=== PATIENT | male | born 1950 | race Hispanic/Latino ===

== ENCOUNTER 2017-09-06 17:22 | Inpatient (IN) | payer MEDICARE, OTHER ==
[~2017-09-06] VITALS: Ht 180.3 cm; Wt 85.3 kg
[2017-09-06] MEDS ORDERED: ACETAMINOPHEN 325 MG TAB PO STA (17:56)
[2017-09-06] MEDS ORDERED: ACETAMINOPHEN 325 MG TAB ONE (17:56)
[2017-09-06 18:27] LABS: BASOPHILS # (AUTO) 0.1 (0.0-0.1); BASOPHILS % 0.5 % (0.0-1.0); EOSINOPHILS # (AUTO) 0.1 (0.0-0.4); EOSINOPHILS % 0.4 % (0.0-6.0); HEMATOCRIT 39.7 % (38.2-49.6); HEMOGLOBIN 13.3 g/dL (14.0-18.0); LYMPHOCYTES # (AUTO) 2.7 (1.0-3.2); LYMPHOCYTES % 10.8 % (18.0-39.1); MEAN CORPUSCULAR HEMOGLOBIN 29.1 pg (28-32); MEAN CORPUSCULAR HGB CONC 33.5 g/dL (31-35); MEAN CORPUSCULAR VOLUME 86.9 fL (81-99); MONOCYTES # (AUTO) 2.3 (0.2-0.8); MONOCYTES % 9.3 % (4.4-11.3); NEUTROPHILS # (AUTO) 19.6 (2.1-6.9); NEUTROPHILS % 78.3 % (38.7-80.0); PLATELET COUNT 348 x10e3/uL (140-360); RED BLOOD COUNT 4.57 x10e6/uL (4.3-5.7); RED CELL DISTRIBUTION WIDTH 14.8 % (11.7-14.4)
[2017-09-06 18:49] LABS: ALANINE AMINOTRANSFERASE 29 IU/L (0-55); ALBUMIN 3.7 g/dL (3.5-5.0); ALKALINE PHOSPHATASE 73 IU/L (40-150); ANION GAP 12.7 mmol/L (8-16); BLOOD UREA NITROGEN 11 mg/dL (7-26); BUN/CREATININE RATIO 14 (6-25); CALCIUM 9.5 mg/dL (8.4-10.2); CARBON DIOXIDE 24 mmol/L (22-29); CHLORIDE 101 mmol/L (98-107); CREATININE, SERUM 0.76 mg/dL (0.72-1.25); EST GLOMERULAR FILTRATION RATE > 60 ML/MIN (60-); GLUCOSE 105 mg/dL (74-118); POTASSIUM 3.7 mmol/L (3.5-5.1); SODIUM 134 mmol/L (136-145)
[2017-09-06 19:09] LABS: LYMPHOCYTES % (MANUAL) 10 % (19-48); MONOCYTES % (MANUAL) 10 % (3.4-9.0); NEUTROPHILS % (MANUAL) 79 % (40-74)
[2017-09-06 19:10] LABS: PLATELET MORPHOLOGY COMMENT FEW LARGE
[2017-09-06 19:11] LABS: ANISOCYTOSIS SLIGHT; PLATELET ESTIMATE ADEQUATE; RBC MORPHOLOGY COMMENT NORMAL
[2017-09-06 19:14] LABS: CLARITY,URINE HAZY (CLEAR); COLOR,URINE YELLOW (YELLOW); LEUKOCYTE ESTERASE ,URINE 1+ (NEGATIVE); NITRITE,URINE NEGATIVE (NEGATIVE)
[2017-09-06 19:15] LABS: BILIRUBIN,URINE NEGATIVE (NEGATIVE); KETONES,URINE NEGATIVE (NEGATIVE); PROTEIN,URINE DIPSTICK TRACE (NEGATIVE); URINE UROBILINOGEN 0.2 mg/dL (0.2 - 1)
[2017-09-06] MEDS ORDERED: CEFTRIAXONE SOD 1 GM VIAL IV SCH (19:15)
[2017-09-06 19:21] LABS: WBC,URINE (MAN) >50 /HPF (0-5)
[2017-09-06 19:22] LABS: BACTERIA,URINE RARE /HPF
[2017-09-06] MEDS ORDERED: SODIUM CHLORIDE 0.9% 1000ML 1,000 ML IV STA (19:23)
--- NOTE | 2017-09-06 21:08 | Diagnostic Imaging Report ---
EXAM: CT Abdomen and Pelvis WITHOUT contrast INDICATION: \S\stone protocol \[id number] \S\1942 \S\Y COMPARISON: None. TECHNIQUE: Abdomen and pelvis were scanned utilizing a multidetector helical scanner from the lung base to the pubic symphysis without administration of IV contrast. Absence of intravenous contrast decreases sensitivity for detection of focal lesions and vascular pathology. Coronal and sagittal reformations were obtained. Routine protocol was performed. IV CONTRAST: None. ORAL CONTRAST: Water RADIATION DOSE: Total DLP: 489.6 mGy*cm Estimated effective dose: (DLP x 0.015 x size factor) mSv COMPLICATIONS: None FINDINGS: LINES and TUBES: None. LOWER THORAX: Coronary artery calcifications. Mild reticulonodular scarring in the right lower lobe with a more discrete nodule measuring 4 mm. If heart recently coming follow-up in 12 months. HEPATOBILIARY: No focal hepatic lesions. No biliary ductal dilation. GALLBLADDER: No radio-opaque stones or sludge. No wall thickening. SPLEEN: No splenomegaly. PANCREAS: No focal masses or ductal dilatation. ADRENALS: No adrenal nodules KIDNEYS/URETERS: No hydronephrosis. No cystic or solid mass lesions. Multiple bilateral nonobstructing calcified stones, approximately 4 on the right and 7 on the left. There is mild pelviectasis and dilatation of the proximal ureter on the left without surrounding fat stranding, this may be chronic. No calcifications overlying the ureters or urinary bladder. GI TRACT: No abnormal distention, wall thickening, or evidence of bowel obstruction. Diffuse diverticulosis throughout the sigmoid colon. Appendix is no well-visualized. PELVIC ORGANS/BLADDER: Unremarkable. LYMPH NODES: No lymphadenopathy. VESSELS: Abdominal aorta and pelvic arteries normal in caliber and associated with mild to moderate atherosclerotic calcifications. PERITONEUM / RETROPERITONEUM: No free air or fluid. BONES: Moderate degenerative changes at L2-L3. SOFT TISSUES: Unremarkable. IMPRESSION: 1. Extensive bilateral nephrolithiasis. No hydronephrosis. Mild pelviectasis and hydroureter on the left without visualized calcified stone in the ureter. This may be chronic or related to recent passed stone. No perinephric or periureteral fat stranding or fluid collections. 2. Diverticulosis of the sigmoid colon without diverticulitis. Signed by: Dr. Ninoska Vinson M.D. on 09/06/2017 9:05 PM
[2017-09-06] MEDS ORDERED: ONDANSETRON HCL INJ 2 MG/ML VIAL IV PRN (22:00)
[2017-09-06] MEDS ORDERED: METOPROLOL SUCC50 MG PO (22:10)
[2017-09-06] MEDS ORDERED: ATORVASTATIN CA20 MG PO (22:10)
[2017-09-06 22:30] VITALS: BP 143/79
[2017-09-06 22:35] VITALS: BP 143/79
--- NOTE | 2017-09-06 22:58 | Diagnostic Imaging Report ---
EXAMINATION: CHEST SINGLE (PORTABLE) INDICATION: Fever. COMPARISON: None FINDINGS: TUBES and LINES: None. LUNGS: Lungs are not well inflated. Lungs are clear. There is mild prominence of the central pulmonary vasculature, consistent with pulmonary venous congestion. PLEURA: No pleural effusion or pneumothorax. HEART AND MEDIASTINUM: The cardiomediastinal silhouette is unremarkable. BONES AND SOFT TISSUES: No acute osseous lesion. Old posttraumatic changes at the lateral right clavicle, right acromion and along the coracoclavicular ligament. Soft tissues are unremarkable. UPPER ABDOMEN: No free air under the diaphragm. IMPRESSION: No acute thoracic abnormality. Signed by: Dr. Aaron Abbasi M.D. on 09/06/2017 10:54 PM
[2017-09-06] MEDS: SODIUM CHLORIDE 0.9% 1000ML 1,000 ML IV SCH (22:59)
[2017-09-07] VITALS (8 sets, daily range): BP systolic 112–133; BP diastolic 67–84
[2017-09-07] MEDS: SODIUM CHLORIDE 0.9% 1000ML 1,000 ML IV SCH ×3 (06:03→21:12)
[2017-09-07] MEDS: CEFTRIAXONE SOD 1 GM VIAL IV SCH ×2 (06:03→18:04)
[2017-09-07 06:21] LABS: BASOPHILS # (AUTO) 0.1 (0.0-0.1); BASOPHILS % 0.4 % (0.0-1.0); EOSINOPHILS # (AUTO) 0.1 (0.0-0.4); EOSINOPHILS % 0.3 % (0.0-6.0); HEMATOCRIT 34.9 % (38.2-49.6); LYMPHOCYTES # (AUTO) 2.7 (1.0-3.2); LYMPHOCYTES % 12.2 % (18.0-39.1); MEAN CORPUSCULAR HEMOGLOBIN 29.2 pg (28-32); MEAN CORPUSCULAR HGB CONC 34.4 g/dL (31-35); MEAN CORPUSCULAR VOLUME 84.9 fL (81-99); MONOCYTES # (AUTO) 2.4 (0.2-0.8); MONOCYTES % 10.8 % (4.4-11.3); NEUTROPHILS % 75.8 % (38.7-80.0); PLATELET COUNT 304 x10e3/uL (140-360); RED BLOOD COUNT 4.11 x10e6/uL (4.3-5.7); RED CELL DISTRIBUTION WIDTH 14.7 % (11.7-14.4)
[2017-09-07 06:37] LABS: ALANINE AMINOTRANSFERASE 24 IU/L (0-55); ALBUMIN/GLOBULIN RATIO 0.9 (0.8-2.0); ALKALINE PHOSPHATASE 61 IU/L (40-150); ANION GAP 12.6 mmol/L (8-16); BLOOD UREA NITROGEN 8 mg/dL (7-26); BUN/CREATININE RATIO 12 (6-25); CALCIUM 8.8 mg/dL (8.4-10.2); CARBON DIOXIDE 22 mmol/L (22-29); CHLORIDE 107 mmol/L (98-107); CREATININE, SERUM 0.67 mg/dL (0.72-1.25); EST GLOMERULAR FILTRATION RATE > 60 ML/MIN (60-); GLUCOSE 106 mg/dL (74-118); POTASSIUM 3.6 mmol/L (3.5-5.1); SODIUM 138 mmol/L (136-145)
[2017-09-07 06:55] LABS: CHOL/HDL RATIO 2.9 (3.9-4.7); MAGNESIUM 1.6 MG/DL (1.3-2.1)
[2017-09-07 07:00] LABS: B-TYPE NATRIURETIC PEPTIDE2 47.8 pg/mL (0-100)
[2017-09-07 07:12] LABS: FREE T4 (FREE THYROXINE) 0.86 ng/dL (0.9-1.8); THYROID STIMULATING HORMONE 1.174 uIU/mL (0.350-4.940)
[2017-09-07] MEDS: METOPROLOL SUCCINATE 50 MG TAB XL PO SCH (08:25)
--- NOTE | 2017-09-07 13:51 | Diagnostic Imaging Report ---
Exam: Abdominal film Clinical History: The, sepsis Comparison: CT September 06, 2017 DISCUSSION: Nonobstructive bowel gas pattern. Stable bilateral inferior pole calculi. No ureteral calculi visualized. Pelvic phlebolith. IMPRESSION: Stable bilateral inferior pole calculi Signed by: Dr. Hector Dominguez M.D. on 09/07/2017 1:48 PM
[2017-09-07] MEDS ORDERED: ATORVASTATIN 20 MG TAB PO SCH (21:00)
[2017-09-08 03:54] LABS: BASOPHILS # (AUTO) 0.1 (0.0-0.1); BASOPHILS % 0.8 % (0.0-1.0); EOSINOPHILS # (AUTO) 0.3 (0.0-0.4); EOSINOPHILS % 2.4 % (0.0-6.0); HEMATOCRIT 34.2 % (38.2-49.6); HEMOGLOBIN 11.5 g/dL (14.0-18.0); LYMPHOCYTES # (AUTO) 2.1 (1.0-3.2); LYMPHOCYTES % 17.2 % (18.0-39.1); MEAN CORPUSCULAR HEMOGLOBIN 29.2 pg (28-32); MEAN CORPUSCULAR HGB CONC 33.6 g/dL (31-35); MEAN CORPUSCULAR VOLUME 86.8 fL (81-99); MONOCYTES # (AUTO) 1.3 (0.2-0.8); MONOCYTES % 10.6 % (4.4-11.3); NEUTROPHILS # (AUTO) 8.2 (2.1-6.9); NEUTROPHILS % 68.7 % (38.7-80.0); PLATELET COUNT 288 x10e3/uL (140-360); RED BLOOD COUNT 3.94 x10e6/uL (4.3-5.7); RED CELL DISTRIBUTION WIDTH 14.7 % (11.7-14.4)
[2017-09-08 04:12] LABS: ANION GAP 11.8 mmol/L (8-16); BLOOD UREA NITROGEN 7 mg/dL (7-26); BUN/CREATININE RATIO 11 (6-25); CALCIUM 8.7 mg/dL (8.4-10.2); CARBON DIOXIDE 22 mmol/L (22-29); CHLORIDE 111 mmol/L (98-107); CREATININE, SERUM 0.63 mg/dL (0.72-1.25); EST GLOMERULAR FILTRATION RATE > 60 ML/MIN (60-); GLUCOSE 110 mg/dL (74-118); MAGNESIUM 1.5 MG/DL (1.3-2.1); POTASSIUM 3.8 mmol/L (3.5-5.1); SODIUM 141 mmol/L (136-145)
[2017-09-08 04:47] VITALS: BP 116/57
[2017-09-08] MEDS: CEFTRIAXONE SOD 1 GM VIAL IV SCH (05:39)
[2017-09-08] MEDS: SODIUM CHLORIDE 0.9% 1000ML 1,000 ML IV SCH ×2 (05:39→13:53)
[2017-09-08] MEDS ORDERED: FAMOTIDINE 20 MG TAB PO SCH (07:30)
[2017-09-08 08:00] VITALS: BP 116/57
[2017-09-08 08:06] VITALS: BP 125/75
[2017-09-08] MEDS: METOPROLOL SUCCINATE 50 MG TAB XL PO SCH (08:23)
[2017-09-08] MEDS ORDERED: CEFTIN PO (10:24)
[2017-09-08 12:15] VITALS: BP 121/72
--- NOTE | 2017-09-08 20:58 | Discharge Summary ---
ADMISSION DIAGNOSES: 1. sepsis. 2. Extensive bilateral nephrolithiasis. 3. Hypertension. 4. Hyperlipidemia. 5. Hyponatremia. 6. Tachycardia. DISCHARGE DIAGNOSES: 1. sepsis. 2. Extensive bilateral nephrolithiasis. 3. Hypertension. 4. Hyperlipidemia. 5. Hyponatremia. 6. Tachycardia. HISTORY: Patient has a history of hypertension, hyperlipidemia, surgical history of . HOSPITAL COURSE: A 67-year-old male has had frequency and dysuria that began 3 weeks ago. He went to his PCP and got Cipro, which he finished last weekend. A couple of days later he started to feel the dysuria again. He complains of subjective fever and chills. Denies hematuria. On admission, patient was started on Rocephin. On admission, his white count was 24.97. Urology was consulted. Chest x-ray was negative. CT of the abdomen showed extensive bilateral nephrolithiasis, no hydronephrosis, diverticulosis without diverticulitis. An x-ray of the abdomen showed stable bilateral inferior pole calculi. Patient's urine culture came back negative. Blood culture came back negative, but after starting Rocephin, his white count went from 24 to 11, so patient was discharged home with 7 more days of Ceftin p.o. as well as home medications of Lipitor and metoprolol. Patient was cleared for discharge per urology as his kidney stones are causing no issues. He will follow up with urology as discussed and primary care in 1 to 2 weeks. Patient and understand discharge plan and agree with instructions. Dictated by Cristal Rainey NP LILLIAN RIVERA MD Job#: [id number]
== END 2017-09-08 15:35 | disposition home or self-care (01) | DRG 872 ==
LOC: ER 17:22 → ERHOLD 21:56 → MED/SURG2 22:34
PROVIDERS: ADMIT Internal Medicine; ATTEND Internal Medicine
DX: A41.9 Sepsis, unspecified organism (principal); N30.01 Acute cystitis with hematuria; E87.1 Hypo-osmolality and hyponatremia; I10 Essential (primary) hypertension; N20.0 Calculus of kidney; E78.5 Hyperlipidemia, unspecified; R00.0 Tachycardia, unspecified; Z72.0 Tobacco use; D64.9 Anemia, unspecified; N41.9 Inflammatory disease of prostate, unspecified
CPT/HCPCS: 36415; 71045; 74018; 74176; 80048; 80053; 80061; 81001; 83036; 83605; 83735; 83880; 84439; 84443; 84550; 85025; 87040; 87086; 93005; 99284; J0696; J7030

== ENCOUNTER → 2018-01-15 | Outpatient (CLI) | payer MEDICARE, OTHER ==
[~2018-01-15] MED LIST: ATORVASTATIN CA20 MG PO; CEFTIN PO; FUROSEMIDE INJ 10 MG/ML 4 ML VIAL ONE; METOPROLOL SUCC50 MG PO
--- NOTE | 2018-01-15 09:20 | Diagnostic Imaging Report ---
PROCEDURE:X-RAY ABDOMEN - KUB COMPARISON:KUB 09/07/[address] Abdomen/Pelvis 09/06/17. INDICATIONS:CALCULUS OF KIDNEY FINDINGS: There is a non-obstructed bowel-gas pattern. Bowel gas partially obscures visualization of the kidneys. Unchanged appearance of bilateral renal calculi, measuring up to 5 mm on the left and 3 mm on the right. No evidence of stone overlying the expected location of the ureters or bladder. Calcified phleboliths project over the left pelvis. There are no acute osseous abnormalities. The lung bases are clear. CONCLUSION: Similar appearance of bilateral renal calculi. Dictated by: ISRAEL GUTIERREZ M.D. on 01/15/2018 at 9:29 Electronically approved by: ISRAEL GUTIERREZ M.D. on 01/15/2018 at 9:29
--- NOTE | 2018-01-15 19:47 | Diagnostic Imaging Report ---
Renal Scan with Lasix Washout Clinical information: 67 M with renal calculi x 3 years and recent UTI Technique: Following intravenous administration of 11 mCi of Tc-99m MAG3, dynamic images of the kidneys in the posterior projection were obtained through 40 minutes. Lasix 40 mg was administered intravenously at 12 minutes post injection of the tracer. Report: Left kidney: Perfusion of the left kidney is prompt. The kidney has a distorted reniform shape with thinning of the renal cortex in the lower pole. The kidney is small. Extraction of tracer from the blood pool is normal. Clearance of tracer from the renal parenchyma is prompt. Calices throughout the kidney are mildly dilated but the renal pelvis is not dilated. Increased pooling of tracer is seen within the calices. Drainage of tracer from the pelvicalyceal system is adequate prior to administration of Lasix. Washout of tracer from the pelvicalyceal system following administration of Lasix is rapid with a T-1/2 of 5 minutes (normal less than 15 minutes). No significant stasis of tracer is seen within the left ureter. Right kidney: Perfusion to the right kidney is prompt. The right kidney has a normal reniform shape. Compensatory hypertrophy is suspected. Extraction of tracer by the renal parenchyma is normal. Clearance of tracer from the renal parenchyma is prompt. The pelvicalyceal system is not dilated. Physiologic pooling of tracer within the pelvicalyceal system is seen. Drainage of tracer from the pelvicalyceal system is prompt and adequate prior to administration of Lasix. No significant stasis of tracer is seen within the right ureter. Differential renal function: The left kidney contributes 32% of total renal function and the right kidney contributes 68% (normal 43-57%). Impression: 1. Significant loss of renal parenchyma in the left kidney evidenced by the reduction in size and the thinning of the cortex in the lower pole. This accounts for the decreased differential renal function of 32%. Mild caliectasis is present suggesting reflux nephropathy as likely cause of scarring. No physiologically significant obstruction of the renal collecting system is present. 2. The function of the right kidney is generally normal. Compensatory hypertrophy is suspected. No hydronephrosis is present. No physiologically significant obstruction of the renal collecting system is present. Signed by: Dr. Swati Johns M.D. on 01/15/2018 7:44 PM
== END ==
LOC: NM 08:10
PROVIDERS: ATTEND Urology
DX: N20.0 Calculus of kidney (principal); N13.30 Unspecified hydronephrosis
CPT/HCPCS: 74018; 78707; A9562; J1940

== ENCOUNTER 2018-02-10 09:42 | Emergency (ER) | payer MEDICARE, OTHER ==
[~2018-02-10] VITALS: Ht 180.3 cm; Wt 85.3 kg
[~2018-02-10 09:42] MED LIST changes: -FUROSEMIDE INJ 10 MG/ML 4 ML VIAL ONE
--- OUTSIDE RECORDS SUMMARY | 2018-02-10 09:45 | XMS REPORT | Clinical Summary ---
Author Author [facility] Organization [facility] Address Unknown Phone Unavailable Care Team Providers Care Coal Hiker Name Role Phone Ruth Marquez MD PCP Allergies No Known Allergies Medications End Date Status Medication Sig Dispensed Refills Start Date Active atorvastatin (LIPITOR) 20 0 MG tablet 8 Active metoprolol succinate XL 0 (TOPROL-XL) 50 mg 24 hr 8 tablet 08/26/2017 Discontinued atenolol (TENORMIN) 50 MG 1 tablet 6 08/26/2017 Discontinued fenofibrate (LOFIBRA) 160 1 MG tablet 6 08/26/2017 Discontinued tamsulosin (FLOMAX) 0.4 2 mg capsule,extended 6 release 24hr 08/26/2017 Discontinued simvastatin (ZOCOR) 20 MG 1 tablet 6 Active Problems Problem Noted Date Primary osteoarthritis of both knees 07/01/2017 Osteoarthritis 09/29/2015 Knee pain 09/29/2015 Tear of lateral meniscus of knee 09/29/2015 Sprain of cruciate ligament of knee 09/29/2015 Tear of medial meniscus of knee 09/29/2015 Encounters Care Team Description Date Type Specialty Paige Bañuelos MD Impingement syndrome of right shoulder (Primary Dx) 08/26/2017 Office Visit Orthopedic Surgery Paige Bañuelos MD Primary osteoarthritis of both knees (Primary Dx); Chronic right shoulder pain; Complete tear of right rotator cuff 07/01/2017 Office Visit Orthopedic Surgery after 02/09/2017 Social History Date Tobacco Use Types Packs/Day Years Used Current Every Day Smoker Smokeless Tobacco: Never Used Sex Assigned at Date Recorded Not on file Industry Job Start Date Occupation Not on file Not on file Not on file Travel End Travel History Travel Start No recent travel history available. Last Filed Vital Signs Time Taken Vital Sign Reading - Blood Pressure - - Pulse - - Temperature - - Respiratory Rate - - Oxygen Saturation - - Inhaled Oxygen - Concentration 08/26/2017 8:55 AM CDT Weight 88.5 kg (195 lb) 08/26/2017 8:55 AM CDT Height 180.3 cm (5' 11") 08/26/2017 8:55 AM CDT Body Mass Index 27.2 Plan of Treatment Health Maintenance Due Date Last Done Comments COLON CANCER SCREENING 1998 SHINGRIX VACCINE (1 of 2) 1998 ZOSTER VACCINE 2008 PNEUMOCOCCAL 2013 POLYSACCHARIDE VACCINE AGE 65 AND OVER PNEUMOCOCCAL-13 2013 INFLUENZA VACCINE 10/09/2017 Procedures Comments Procedure Name Priority Date/Time Associated Diagnosis [place] ARTHROCENTESIS Routine 08/26/2017 Impingement syndrome of ASPIR&/INJ MAJOR JT/BURSA 8:50 AM CDT right shoulder W/O US [place] ARTHROCENTESIS Routine 07/01/2017 Primary osteoarthritis of ASPIR&/INJ MAJOR JT/BURSA 10:40 AM CDT both knees W/O US XR SHOULDER 2+ VW RIGHT Routine 07/01/2017 Chronic right shoulder 10:12 AM CDT pain after 02/09/2017 Results * Large Joint Arthrocentesis (08/26/2017 8:50 AM CDT) Narrative Performed At Paige Bañuelos MD 08/26/20179:22 AM Large Joint Arthrocentesis Supporting Documentation Indications: pain Procedure Details Location: subacromial bursa - Location: - right Right side: Approach: posterior Right subacromial bursa medications administered: 2 mL lidocaine 10 mg/mL (1 %); 6 mg betamethasone acetate & sodium phosphate 6 mg/mL (The patient will apply ice to the injected area today and use OTC meds as needed for injection pain. We discussed potential risks to include infection, pain, ineffectuality, fat atrophy, skin pigmentation loss, and need for more treatment.) * Large Joint Arthrocentesis (07/01/2017 10:40 AM CDT) Narrative Performed At Paige Bañuelos MD 07/01/2017 12:28 PM Large Joint Arthrocentesis Supporting Documentation Indications: pain Procedure Details Location: knee - R knee Right side: Approach: anteromedial Right knee medications administered: 2 mL lidocaine 10 mg/mL (1 %); 6 mg betamethasone acetate & sodium phosphate 6 mg/mL (The patient will apply ice to the injected area today and use OTC meds as needed for injection pain. We discussed potential risks to include infection, pain, ineffectuality, fat atrophy, skin pigmentation loss, and need for more treatment.) * XR Shoulder 2+ Vw Right (07/01/2017 10:12 AM CDT) Narrative Performed At [facility] Radiographs of the right shoulder, 3 views, AP, Y and axillary lateral views: No fracture, no dislocation, normal alignment, preserved glenohumeral joint space, no pathologic lesion, bengin greater tuberosity cysts, preserved acromiohumeral interval, type II acromion, AC joint degenerative changes, calcification along coracoclavicular ligaments Performing Organization Address City/State/Zipcode Phone Number [facility] [address] [place] [address] after 02/09/2017 Insurance Payer Benefit Subscriber ID Type Phone Address Plan / Group MEDICARE MEDICARE xxxxxxxxxx Medicare [place], [place] PART A AND B COMMERCIAL MISC MISC xxxxxxxx Commercial COMMERCIAL Advance Directives Patient has advance care planning documents on file. For more information, delmy elkins contact: Robb Reno [address] [place] [address]
--- NOTE | 2018-02-10 10:34 | Diagnostic Imaging Report ---
PROCEDURE:CXR 1 [facility] COMPARISON:None. INDICATIONS:ruq abd pain x3 days FINDINGS:The lungs are well-inflated. No focal airspace consolidation, pleural effusion, or pneumothorax. Cardiomediastinal contour is notable for atherosclerotic calcification of the thoracic aorta. No pulmonary edema. No acute osseous abnormalities. Posttraumatic changes of the right shoulder girdle include dystrophic calcifications at the coracoclavicular ligament. CONCLUSION: No acute cardiopulmonary abnormality. Dictated by: Hal Saba M.D. on 02/10/2018 at 10:44 Electronically approved by: Hal Saba M.D. on 02/10/2018 at 10:44
== END 2018-02-10 13:41 | disposition home or self-care (01) ==
LOC: FSED 09:42
DX: N20.0 Calculus of kidney (principal); I10 Essential (primary) hypertension; E78.5 Hyperlipidemia, unspecified; K57.30 Diverticulosis of large intestine without perforation or abscess without bleeding; I70.0 Atherosclerosis of aorta; I70.8 Atherosclerosis of other arteries
CPT/HCPCS: 71045; 74176; 81003; 93005; 99284

== ENCOUNTER → 2018-02-19 | Day surgery (SDC) | payer MEDICARE, OTHER ==
[~2018-02-19] MED LIST changes: +BELLADONNA/OPIUM 60 MG SUPP PR ONE; +CEFTRIAXONE SOD 1 GM VIAL ONE; +DEXAMETHASONE SOD PHOS INJ 4 MG/ML VIAL ONE; +FENTANYL CITRATE/PF 100MCG/2 ML INJ ONE; +IOPAMIDOL 610MG/1ML 300 MG/ML VIAL IV ONE; +LIDOCAINE HCL 2% LOCAL INJ 5 ML SDV VIAL INJ ONE; +MIDAZOLAM HCL 2 MG/2 ML VIAL ONE; +ONDANSETRON HCL INJ 2 MG/ML VIAL ONE; +PROPOFOL IV EMULSION 10 MG/ML 20 ML VIAL ONE; +SEVOFLURANE INHAL SOLN 250 ML PEN BTL ONE
--- OUTSIDE RECORDS SUMMARY | 2018-02-19 05:15 | XMS REPORT | Clinical Summary ---
Author Author [facility] Organization [facility] Address Unknown Phone Unavailable Care Team Providers Care Dry Mop Maker Name Role Phone Ruth Marquez MD PCP [...] cuff 07/01/2017 Office Visit Orthopedic Surgery after 02/18/2017 Social History Date Tobacco Use Types Packs/Day [...] Comments Procedure Name Priority Date/Time Associated Diagnosis [place] ARTHROCENTESIS Routine 08/26/2017 Impingement syndrome of ASPIR&/INJ MAJOR JT/BURSA 8:50 AM CDT right shoulder W/O US DE ARTHROCENTESIS Routine 07/01/2017 Primary osteoarthritis of ASPIR&/INJ MAJOR JT/BURSA 10:40 AM CDT both knees W/O US XR SHOULDER 2+ VW RIGHT Routine 07/01/2017 Chronic right shoulder 10:12 AM CDT pain after 02/18/2017 Results * Large Joint Arthrocentesis (08/26/2017 8:50 [...] Performing Organization Address City/State/Zipcode Phone Number [facility] [address] [place] [address] after 02/18/2017 Insurance Payer Benefit Subscriber ID Type Phone Address Plan / Group MEDICARE MEDICARE xxxxxxxxxx Medicare [place], [place] PART A AND B COMMERCIAL MISC MISC xxxxxxxx Commercial COMMERCIAL Advance Directives Patient has advance care planning documents on file. For more information, delmy elkins contact: Robb Reno [address] [place] [address]
[2018-02-19 06:06] LABS: BASOPHILS # (AUTO) 0.1 (0.0-0.1); BASOPHILS % 1.2 % (0.0-1.0); EOSINOPHILS # (AUTO) 0.4 (0.0-0.4); HEMATOCRIT 43.1 % (38.2-49.6); HEMOGLOBIN 14.7 g/dL (14.0-18.0); MEAN CORPUSCULAR HEMOGLOBIN 29.8 pg (28-32); MEAN CORPUSCULAR HGB CONC 34.1 g/dL (31-35); MEAN CORPUSCULAR VOLUME 87.4 fL (81-99); NEUTROPHILS # (AUTO) 5.2 (2.1-6.9); NEUTROPHILS % 53.6 % (38.7-80.0); PLATELET COUNT 260 x10e3/uL (140-360); RED BLOOD COUNT 4.93 x10e6/uL (4.3-5.7); RED CELL DISTRIBUTION WIDTH 14.2 % (11.7-14.4)
[2018-02-19 06:20] LABS: ALANINE AMINOTRANSFERASE 25 IU/L (0-55); ALBUMIN 3.8 g/dL (3.5-5.0); ALBUMIN/GLOBULIN RATIO 1.1 (0.8-2.0); ALKALINE PHOSPHATASE 68 IU/L (40-150); ANION GAP 14.8 mmol/L (8-16); BLOOD UREA NITROGEN 13 mg/dL (7-26); BUN/CREATININE RATIO 16 (6-25); CALCIUM 9.3 mg/dL (8.4-10.2); CARBON DIOXIDE 21 mmol/L (22-29); CHLORIDE 105 mmol/L (98-107); CREATININE, SERUM 0.79 mg/dL (0.72-1.25); EST GLOMERULAR FILTRATION RATE > 60 ML/MIN (60-); GLUCOSE 104 mg/dL (74-118); POTASSIUM 3.8 mmol/L (3.5-5.1); SODIUM 137 mmol/L (136-145)
--- NOTE | 2018-02-19 07:18 | Diagnostic Imaging Report ---
PROCEDURE:X-RAY ABDOMEN - KUB COMPARISON:CT abdomen/pelvis renal stone protocol 02/10/18. INDICATIONS:PRE-OP KIDNEY STONE SURGERY FINDINGS: Bowel gas partially obscures visualization of the kidneys. Similar appearance of bilateral renal calculi, measuring up to 6 mm in the left lower pole. Additional 2 mm calculi project over the lower poles bilaterally and are similar to CT on 02/10/18. No calcifications project over the expected location of the ureters or bladder. Left pelvic phleboliths are present. Non-obstructive bowel gas pattern. No evidence of free intraperitoneal air. No acute bony abnormalities. CONCLUSION: Stable appearance of bilateral renal calculi, measuring up to 6 mm in the left lower pole kidney. Dictated by: ISRAEL GUTIERREZ M.D. on 02/19/2018 at 7:28 Electronically approved by: ISRAEL GUTIERREZ M.D. on 02/19/2018 at 7:28
[2018-02-19 09:25] VITALS: BP 127/79
--- NOTE | 2018-02-20 00:55 | Operative Report ---
DATE OF PROCEDURE: February 19, 2018 PREOPERATIVE DIAGNOSES: 1. Bilateral nephrolithiasis. 2. History of left ureteral stricture. 3. Possible right renal colic. POSTOPERATIVE DIAGNOSES: 1. Bilateral nephrolithiasis. 2. History of left ureteral stricture. 3. No evidence of active right renal colic. OPERATIONS PERFORMED: Note these are all staged procedures as part of a multistage, multistep process of managing the patient's urolithiasis. 1. Left-sided extracorporeal shock wave lithotripsy (separate procedure performed for the nephrolithiasis done from a separate approach). 2. Cystourethroscopy with bilateral ureteral catheterization and retrograde ureteropyelography (separate procedure performed to evaluate the left ureteral stricture as well as determine whether the patient's right-sided flank pains could be attributed to renal colic). 3. Interpretation of retrograde ureteropyelography. ANESTHESIA: General. COMPLICATIONS: None. CLINICAL SUMMARY: Rip Sharma is a 67-year-old man with complex urological history. The patient has had significant bilateral stone disease. He has undergone multiple ESWLs as well as ureteroscopic procedures. He had a left ureteral stricture that was dilated multiple times. The patient had some right-sided flank pains approximately 2 weeks ago, and underwent CT scanning which did not show any hydronephrosis, it did show bilateral nephrolithiasis. The patient is brought to the operating room today for the above procedures. He is aware of the risks of bleeding, infection, injury to adjacent structures, need for additional procedures, and elected to proceed. OPERATIVE PROCEDURE IN DETAIL: Informed consent was verified. Rip Sharma was properly identified, taken to the operating room, and placed on the lithotripsy table in supine position. Anesthesia was uneventfully begun. The patient's left lower pole nephrolithiasis was localized with biplanar fluoroscopy, total of 3000 shocks were delivered to this 7-mm cluster with excellent fragmentation noted. The patient was then carefully and gently repositioned in dorsal lithotomy position with all pressure points well padded. His genitalia were prepared and draped in usual sterile fashion. A 22.5-[place] cystoscope sheath with the visual obturator in place was atraumatically inserted into patient's urethra. It was guided down the unremarkable distal urethra, through his normal sphincteric region, into the prostate bed, which was significant for being status post transurethral resection of the prostate with residual prostatic tissue that is caving in and obstructing the prostate bed both distally as well as proximally from the right side. We entered the patient's bladder where panendoscopy revealed trabeculations, but no tumors, no stones, and no diverticula. No suspicious mucosal lesions were identified. A ureteral catheter was used to cannulate each ureter, and retrograde ureteral pyelograms were performed. Interpretation of retrograde ureteropyelography: Contrast was instilled in retrograde fashion bilaterally. The right side exhibited calcifications in the kidney, which were actually small, approximately 3 mm in size. There was no hydronephrosis. The ureter was unremarkable. There was no evidence of renal colic on the right hand side. It is possible the patient had passed a small stone that caused the transient right-sided renal colic. The left side exhibited normal ureter. The previous ureteral stricture is not present at this time and seems to have resolved. There was no hydronephrosis. Unobstructed drainage was observed fluoroscopically. The calices were sharp and delicate in the kidney. Patient's bladder was then drained. The cystoscope was withdrawn. A belladonna and opium suppository was placed revealing a 40 g prostate that is smooth, non-fluctuant, and without any nodules. The patient was then uneventfully reversed from anesthesia and taken to recovery room in stable condition. There were no complications to the procedure. He tolerated the procedure well. Explicit postop instructions were given. Will follow the patient up in the office for uroflowmetry and bladder ultrasonography in approximately 1 month. Job#: [id number]
== END | disposition home or self-care (01) ==
LOC: OR 05:12
PROVIDERS: ATTEND Urology
DX: N20.0 Calculus of kidney (principal); N32.89 Other specified disorders of bladder; I10 Essential (primary) hypertension; E78.5 Hyperlipidemia, unspecified; R06.83 Snoring; K44.9 Diaphragmatic hernia without obstruction or gangrene; I45.10 Unspecified right bundle-branch block; F17.210 Nicotine dependence, cigarettes, uncomplicated
CPT/HCPCS: 36415; 50590; 74018; 80053; 83970; 84550; 85025; J0696; J1100; J2001; J2250; J2405; J2704; Q9967

== ENCOUNTER → 2018-05-08 | Outpatient (CLI) | payer MEDICARE, OTHER ==
[~2018-05-08] MED LIST changes: -BELLADONNA/OPIUM 60 MG SUPP PR ONE; -CEFTRIAXONE SOD 1 GM VIAL ONE; -DEXAMETHASONE SOD PHOS INJ 4 MG/ML VIAL ONE; -FENTANYL CITRATE/PF 100MCG/2 ML INJ ONE; -IOPAMIDOL 610MG/1ML 300 MG/ML VIAL IV ONE; -LIDOCAINE HCL 2% LOCAL INJ 5 ML SDV VIAL INJ ONE; -MIDAZOLAM HCL 2 MG/2 ML VIAL ONE; -ONDANSETRON HCL INJ 2 MG/ML VIAL ONE; -PROPOFOL IV EMULSION 10 MG/ML 20 ML VIAL ONE; -SEVOFLURANE INHAL SOLN 250 ML PEN BTL ONE
--- NOTE | 2018-05-08 08:28 | Diagnostic Imaging Report ---
EXAM: Abdomen 2 views INDICATION: Renal calculus. COMPARISON: KUB 02/19/2018. FINDINGS: Nonobstructive bowel gas pattern. Bowel gas partially obscures visualization of the left kidney. There is a cluster of stones in the inferior pole of the left kidney, measuring up to 1.1 cm in aggregate, with the largest individual stone measuring up to 0.5 cm. There are right mid and lower pole renal calcifications measuring up to 0.3 cm. No acute osseous abnormality. Part of the left lateral iliac bone is not included in the field of view. IMPRESSION: Left lower pole cluster of stones measuring 1.1 cm. Right mid and lower pole renal stones measuring up to 0.3 cm. Signed by: Dr. Teresa Huerta MD on 05/08/2018 8:24 AM
== END ==
LOC: RAD 07:51
PROVIDERS: ATTEND Urology
DX: N20.0 Calculus of kidney (principal)
CPT/HCPCS: 74018

== ENCOUNTER → 2018-06-10 | Outpatient (CLI) | payer MEDICARE, OTHER ==
--- NOTE | 2018-06-10 09:31 | Diagnostic Imaging Report ---
EXAMINATION: CT of the abdomen and pelvis without contrast. TECHNIQUE: Spiral CT images of the abdomen and pelvis were performed from the lung bases to the lesser trochanters. No intravenous contrast was given per renal stone protocol. Coronal and sagittal reformatted images were obtained. COMPARISON: CT abdomen and pelvis without contrast 02/10/2018 CLINICAL HISTORY:Renal stone DISCUSSION: ABSENCE OF INTRAVENOUS CONTRAST DECREASES SENSITIVITY FOR DETECTION OF FOCAL LESIONS AND VASCULAR PATHOLOGY. ABDOMEN/PELVIS: LOWER THORAX: Subsegmental atelectasis in the dependent lower lobes. Otherwise unremarkable. HEPATOBILIARY:No focal hepatic lesions. No biliary ductal dilation. The gallbladder is normal. SPLEEN: No splenomegaly. PANCREAS: No focal masses or ductal dilatation. ADRENALS: No adrenal nodules. KIDNEYS/URETERS: Unchanged left lower pole renal calculi measuring 8 mm in maximum dimension, with an adjacent lower pole calculus measuring 3 mm. Punctate nonobstructing interpolar right renal calculus is unchanged in position, as is a 4 mm nonobstructing calculus in the right lower pole and a cluster of nonobstructing right lower pole calcifications measuring 6 mm in aggregate dimension. No hydronephrosis. No ureteral or bladder calculi. No gross renal mass lesion. PELVIC ORGANS/BLADDER: Urinary bladder is unremarkable. Questionable changes related to TURP again seen. PERITONEUM/RETROPERITONEUM: No free air or fluid. LYMPH NODES: No pelvic sidewall, retroperitoneal, or mesenteric lymphadenopathy. VESSELS: Limited evaluation without intravenous contrast. Atherosclerotic calcification of the abdominal aorta and branch vessels without aneurysmal dilatation. GI TRACT: Innumerable sigmoid diverticula without wall thickening or adjacent inflammatory change. Diverticula of a lesser concentration along the descending colon again without inflammatory changes. The appendix is normal. No small bowel dilatation to suggest obstruction. BONES AND SOFT TISSUES: No focal soft tissue abnormalities with the exception of a small fat-containing left inguinal hernia unchanged.. No osseous destructive lesions. Degenerative disc changes of the lumbar spine. IMPRESSION: Bilateral nonobstructing renal calculi as above, without significant interval change in stone burden relative to 02/10/2018. Atherosclerotic vascular disease. Large bowel diverticulosis without findings of diverticulitis. Signed by: Dr. Hal Saba M.D. on 06/10/2018 9:27 AM
== END ==
LOC: CT 08:03
PROVIDERS: ATTEND Urology
DX: N20.0 Calculus of kidney (principal)
CPT/HCPCS: 74176

== ENCOUNTER → 2018-08-29 | Day surgery (SDC) | payer MEDICARE, OTHER ==
[2018-08-25 14:12] LABS: BASOPHILS # (AUTO) 0.1 (0.0-0.1); EOSINOPHILS # (AUTO) 0.3 (0.0-0.4); EOSINOPHILS % 3.7 % (0.0-6.0); HEMATOCRIT 40.5 % (38.2-49.6); HEMOGLOBIN 13.9 g/dL (14.0-18.0); LYMPHOCYTES # (AUTO) 2.9 (1.0-3.2); MEAN CORPUSCULAR HGB CONC 34.3 g/dL (31-35); MEAN CORPUSCULAR VOLUME 87.5 fL (81-99); MONOCYTES # (AUTO) 0.9 (0.2-0.8); MONOCYTES % 9.9 % (4.4-11.3); PLATELET COUNT 266 x10e3/uL (140-360); RED BLOOD COUNT 4.63 x10e6/uL (4.3-5.7); RED CELL DISTRIBUTION WIDTH 14.3 % (11.7-14.4)
--- NOTE | 2018-08-25 14:48 | Diagnostic Imaging Report ---
EXAM: CHEST 2 VIEWS, PA and lateral DATE: 08/25/2018 Time stamp on exam: 2:07 PM INDICATION: Preoperative for lithotripsy COMPARISON: None FINDINGS: LINES/TUBES: None LUNGS: No consolidations or edema. PLEURA: No effusions or pneumothorax. HEART AND MEDIASTINUM: Normal size and contour. BONES AND SOFT TISSUES: No acute findings. Degenerative changes of the spine. Posttraumatic irregularity of the right shoulder and distal clavicle IMPRESSION: No acute thoracic abnormality. Signed by: Dr. Cedric Mayer DO on 08/25/2018 2:45 PM
--- NOTE | 2018-08-25 14:54 | Diagnostic Imaging Report ---
Abdomen, two views. History: Renal stones. Comparison: CT scan of the abdomen and pelvis dated 06/10/2018 Findings: The intestinal gas pattern is nonobstructive. Several small stones are noted overlying the lower pole of the left kidney with a composite size of 4.8 mm. Small stones overlie the right kidney are partially obscured by fecal material in the colon. There no masses. The osseous structures reveal degenerative spurring of the lumbar spine.. IMPRESSION: Bilateral renal lithiasis. Signed by: Dr. Cedric Mayer DO on 08/25/2018 2:50 PM
[~2018-08-29] MED LIST changes: +B&O 60MG R/S 60 MG SUPP PR ONE; +CEFTRIAXONE SOD 1 GM/NS 50 ML 50 ML IV ONE; +DEXAMETHASONE SOD PHOS INJ 4 MG/ML VIAL ONE; +FENTANYL CITRATE/PF 100MCG/2 ML INJ ONE; +IOPAMIDOL 610MG/1ML 300 MG/ML VIAL IV ONE; +LIDOCAINE HCL 2% LOCAL INJ 5 ML SDV VIAL INJ ONE; +LOSARTAN POTASS25 MG PO; +LOVASTATIN20 MG PO; +METOPROLOL TART50 MG PO; +MIDAZOLAM HCL 2 MG/2 ML VIAL ONE; +ONDANSETRON HCL INJ 2MG/ML 2ML 2 MG/ML VIAL ONE; +PROPOFOL IV EMULSION 10 MG/ML 20 ML VIAL ONE; +SEVOFLURANE INHAL SOLN 250 ML PEN BTL ONE
--- OUTSIDE RECORDS SUMMARY | 2018-08-29 05:08 | XMS REPORT | Clinical Summary ---
Author Author [facility] Organization [facility] Address Unknown Phone Unavailable Care Team Providers Care Tool Polisher Name Role Phone Ruth Marquez MD PCP Allergies No Known Allergies Medications End Date Status Medication Sig Dispensed Refills Start Date Active atorvastatin (LIPITOR) 20 0 MG tablet 8 Active metoprolol succinate XL 0 (TOPROL-XL) 50 mg 24 hr 8 tablet Active Problems Problem Noted Date Primary osteoarthritis of both knees 07/01/2017 Osteoarthritis 09/29/2015 Knee pain 09/29/2015 Tear of lateral meniscus of knee 09/29/2015 Sprain of cruciate ligament of knee 09/29/2015 Tear of medial meniscus of knee 09/29/2015 Encounters Care Team Description Date Type Specialty Paige Bañuelos MD Primary osteoarthritis of both knees (Primary Dx); Impingement syndrome of right shoulder 06/30/2018 Office Visit Orthopedic Surgery after 08/28/2017 Social History Date Tobacco Use Types Packs/Day [...] Saturation - - Inhaled Oxygen - Concentration 06/30/2018 11:06 AM CDT Weight 86.2 kg (190 lb) 06/30/2018 11:06 AM CDT Height 180.3 cm (5' 11") 06/30/2018 11:06 AM CDT Body Mass Index 26.5 Plan of Treatment Health Maintenance Due Date Last Done Comments COLONOSCOPY SCREENING 1998 SHINGLES VACCINES (#1) 1998 65+ PNEUMOCOCCAL VACCINE 2013 (1 of 2 - PCV13) INFLUENZA VACCINE 10/09/2018 Procedures Comments Procedure Name Priority Date/Time Associated Diagnosis OR ARTHROCENTESIS Routine 06/30/2018 Primary osteoarthritis of ASPIR&/INJ MAJOR JT/BURSA 11:10 AM CDT both knees W/O US after 08/28/2017 Results * Large Joint Arthrocentesis: knee, R knee (06/30/2018 11:10 AM CDT) Narrative Performed At Paige Bañuelos MD 06/30/2018 11:54 AM Large Joint Arthrocentesis: knee, R knee Supporting Documentation Indications: pain Procedure Details Location: [...] pigmentation loss, and need for more treatment.) after 08/28/2017 Insurance Type Payer Benefit Subscriber ID Effective Phone Address Plan / Dates Group Medicare MEDICARE MEDICARE xxxxxxxxxxx 2013-P [place], PART A AND resent [place] B Commercial COMMERCIAL MISC MISC xxxxxxxx 2016-P COMMERCIAL resent Advance Directives Patient has advance care planning documents on file. For more information, delmy elkins contact: Robb Reno [address] [place] [address]
[2018-08-29 08:55] VITALS: BP 120/81
--- NOTE | 2018-10-10 03:48 | Operative Report ---
DATE OF PROCEDURE: 08/29/2018 SURGEON: Asif Frias MD PREOPERATIVE DIAGNOSES: 1. Bilateral nephrolithiasis. 2. Microhematuria. POSTOPERATIVE DIAGNOSES: 1. Bilateral nephrolithiasis. 2. Microhematuria. OPERATION PERFORMED: Note, these were all staged procedures as part of multi-staged, multi-step process of managing the patient's recurrent urolithiasis. 1. Left-sided extracorporeal shockwave lithotripsy (separate procedure performed for the left nephrolithiasis). 2. Cystourethroscopy with bilateral ureteral catheterization and retrograde ureteropyelography (separately procedure performed for the microhematuria). 3. Interpretation of retrograde ureteropyelography. ANESTHESIA: General. COMPLICATIONS: None. CLINICAL SUMMARY: Rip Sharma is a 68-year-old man with recurrent urolithiasis. He has also has a history of left ureteral stricture. He also has a history of transurethral resection of prostate for severely obstructive BPH. He was brought for the above procedures. He is aware of the risks of bleeding, infection, injury to adjacent structures, need for additional procedures, and elected to proceed. OPERATIVE PROCEDURE IN DETAIL: Informed consent was verified. Rip Sharma was properly identified, taken to the operating room, placed on the lithotripsy table in supine position. Anesthesia was uneventfully begun. The patient's left 7 mm lower calyceal stone was localized with biplanar fluoroscopy. A total of 3000 shocks were delivered with excellent fragmentation. The patient was then carefully and gently repositioned in the dorsal lithotomy position with all pressure points well padded. His genitalia were prepared and draped in usual sterile fashion. The 22.5-Welsh cystoscope sheath with visual obturator in place was atraumatically inserted into the patient's urethra. It was guided down the unremarkable urethra to the sphincteric region. At the sphincteric region, there was mild blanching of the mucosa. We traversed the normal sphincteric region, went into the patient's prostate bed, which was status post transurethral resection of prostate. There was a residual apical and distal prostatic tissue that was caving in to the resected open cavity causing some degree of visual obstruction. We entered the patient's bladder and drained it. Panendoscopy revealed heavy grade 2 to 3 trabeculations, but no tumors, no stones, and no true diverticula. Normally positioned configured ureteral orifices were identified. A ureteral catheter was used to cannulate each ureter and retrograde ureteral pyelograms were performed. Interpretation of retrograde ureteropyelography contrast was instilled in retrograde fashion bilaterally. There were filling defects corresponding to where we performed lithotripsy in the left lower pole. No other stones were visualized in the left hand side. There was no hydronephrosis. There was, however, ureteral stricture located in the distal ureter on the left hand side, where we treated the stricture before. Nevertheless, contrast could be seen freely flowing across this region and therefore we did not dilate nor stent this region. There was a cluster of stones located in the lower right lower pole. No hydronephrosis was present on the right-hand side. Nonobstructive drainage was observed fluoroscopically. The patient's bladder was drained. Cystoscope was withdrawn. A belladonna and opium suppository were placed revealing large smooth prostate, that is nonfunctional without any nodules. The patient was then uneventfully reversed from anesthesia and taken to recovery room in stable condition. There were no complications to the procedure. He tolerated the procedure well. Explicit postoperative instructions were given. We will plan on returning the patient to the operating room electively for a right ESWL with possible cystoscopy and retrogrades required for visualization. Asif Frias MD [place]/MODL /[id number]
== END | disposition home or self-care (01) ==
LOC: OR 05:00
PROVIDERS: ATTEND Urology
DX: N20.0 Calculus of kidney (principal); N13.5 Crossing vessel and stricture of ureter without hydronephrosis; Z98.890 Other specified postprocedural states; N32.89 Other specified disorders of bladder; I10 Essential (primary) hypertension; E78.5 Hyperlipidemia, unspecified; H91.90 Unspecified hearing loss, unspecified ear; K57.90 Diverticulosis of intestine, part unspecified, without perforation or abscess without bleeding; F17.210 Nicotine dependence, cigarettes, uncomplicated; Z01.810 Encounter for preprocedural cardiovascular examination; Z01.812 Encounter for preprocedural laboratory examination; Z01.818 Encounter for other preprocedural examination
CPT/HCPCS: 36415; 50590; 71046; 74018; 85025; 93005; C1758; J0696; J1100; J2001; J2250; J2405; J2704; Q9967; J3010

== ENCOUNTER → 2018-12-04 | Day surgery (SDC) | payer MEDICARE, OTHER ==
[2018-12-02 11:37] LABS: BASOPHILS # (AUTO) 0.1 (0.0-0.1); BASOPHILS % 0.9 % (0.0-1.0); EOSINOPHILS # (AUTO) 0.3 (0.0-0.4); EOSINOPHILS % 3.2 % (0.0-6.0); HEMATOCRIT 43.8 % (38.2-49.6); HEMOGLOBIN 14.6 g/dL (14.0-18.0); LYMPHOCYTES # (AUTO) 3.4 (1.0-3.2); LYMPHOCYTES % 34.3 % (18.0-39.1); MEAN CORPUSCULAR HEMOGLOBIN 29.8 pg (28-32); MEAN CORPUSCULAR HGB CONC 33.3 g/dL (31-35); MEAN CORPUSCULAR VOLUME 89.4 fL (81-99); MONOCYTES % 9.8 % (4.4-11.3); NEUTROPHILS # (AUTO) 5.1 (2.1-6.9); NEUTROPHILS % 51.6 % (38.7-80.0); PLATELET COUNT 243 x10e3/uL (140-360); RED CELL DISTRIBUTION WIDTH 14.2 % (11.7-14.4)
[2018-12-02 11:58] LABS: ANION GAP 11.9 mmol/L (8-16); BLOOD UREA NITROGEN 11 mg/dL (7-26); BUN/CREATININE RATIO 13 (6-25); CALCIUM 9.7 mg/dL (8.4-10.2); CARBON DIOXIDE 28 mmol/L (22-29); CHLORIDE 104 mmol/L (98-107); CREATININE, SERUM 0.83 mg/dL (0.72-1.25); EST GLOMERULAR FILTRATION RATE > 60 ML/MIN (60-); GLUCOSE 96 mg/dL (74-118); POTASSIUM 3.9 mmol/L (3.5-5.1); SODIUM 140 mmol/L (136-145)
--- NOTE | 2018-12-02 12:35 | Diagnostic Imaging Report ---
Exam: KUB - 2 views Indication: Preoperative Comparison: Multiple prior KUBs, most recently of 08/25/2018 Findings: Again seen and not significantly changed are a cluster of left lower pole renal calculi measuring up to 5 mm. Calcific density overlying the lower pole of the right kidney measures up to 4 mm and may represent renal calculus versus intraluminal bowel content. Nonobstructive bowel gas pattern. No free air. Mild degenerative changes of the visualized spine. Phleboliths in the pelvis. Impression: Cluster of left lower pole renal calculi measure up to 5 mm. Calcific density at the lower pole the right kidney measures up to 4 mm and may represent renal calculus versus intraluminal bowel content. Signed by: Kaelyn Holm MD on 12/02/2018 12:32 PM
[~2018-12-04] MED LIST changes: -B&O 60MG R/S 60 MG SUPP PR ONE; +GLYCOPYRROLATE INJ 1MG/ 5 ML SYR ONE; -IOPAMIDOL 610MG/1ML 300 MG/ML VIAL IV ONE; -MIDAZOLAM HCL 2 MG/2 ML VIAL ONE
--- OUTSIDE RECORDS SUMMARY | 2018-12-04 05:21 | XMS REPORT | Clinical Summary ---
Author Author [facility] Organization [facility] Address Unknown Phone Unavailable Care Team Providers Care Analysis Reporting Developer Name Role Phone Ruth Marquez MD PCP [...] Encounters Care Team Description Date Type Specialty aPige Bañuelos MD Primary osteoarthritis of both knees (Primary Dx); Impingement syndrome of right shoulder 06/30/2018 Office Visit Orthopedic Surgery after 12/03/2017 Social History Date Tobacco Use Types Packs/Day Years Used Current Every Day Smoker Smokeless Tobacco: Never Used Sex Assigned at Date Recorded Not on file Industry Job Start Date Occupation Not on file Not on file Not on file Travel End Travel History Travel Start No recent travel history available. Last Filed Vital Signs Reading Time Taken Comments Vital Sign - - Blood Pressure - - Pulse - - Temperature - - Respiratory Rate - - Oxygen Saturation - - Inhaled Oxygen Concentration 86.2 kg (190 lb) 06/30/2018 11:06 AM CDT Weight 180.3 cm (5' 11") 06/30/2018 11:06 AM CDT Height 26.5 06/30/2018 11:06 AM CDT Body Mass Index Plan of Treatment Health Maintenance Due Date Last Done Comments COLONOSCOPY SCREENING 1998 SHINGLES VACCINES (#1) 1998 65+ PNEUMOCOCCAL VACCINE 2013 (1 of 2 - PCV13) INFLUENZA VACCINE 10/09/2018 Procedures Comments Procedure Name Priority Date/Time Associated Diagnosis ID ARTHROCENTESIS Routine 06/30/2018 Primary osteoarthritis of ASPIR&/INJ MAJOR JT/BURSA 11:10 AM CDT both knees W/O US after 12/03/2017 Results * Large Joint Arthrocentesis: knee, R [...] loss, and need for more treatment.) after 12/03/2017 Insurance Type Payer Benefit Subscriber ID Effective Phone Address Plan / Dates Group Medicare MEDICARE MEDICARE xxxxxxxxxxx 2013-P [place], PART A AND resent [place] B Commercial COMMERCIAL MISC MISC xxxxxxxx 2016-P COMMERCIAL resent Advance Directives For more information, please contact: [phone] Patient Assignment Editor Explanation Type Date Recorded Advance Directives, Living Will and Medical Power of Associate Creative Director
--- NOTE | 2018-12-04 07:15 | NUR ---
SPIRITUAL CARE - Pre-Surgery Assessment: Pt in bed. Pt's at bedside. Pt reported supportive attention from family and friends. Intervention: I provided pastoral presence, hospitality, and sympathetic listening. I acquainted pt with availability of crystal slicer while hospitalized. Outcome: Pt expressed appreciation for visit. No need for follow up indicated at this time. JEANNINE Marmolejolain Spiritual Care Department O: [phone] Pager: [phone] ([phone] calling from)
[2018-12-04 09:50] VITALS: BP 158/87
--- NOTE | 2019-01-09 12:58 | Operative Report ---
DATE OF PROCEDURE: 12/04/2018 SURGEON: Asif Frias MD PREOPERATIVE DIAGNOSIS: Nephrolithiasis. POSTOPERATIVE DIAGNOSIS: Nephrolithiasis. OPERATION PERFORMED: Staged right-sided extracorporeal shockwave lithotripsy. ANESTHESIA: General. COMPLICATIONS: None. CLINICAL SUMMARY: Rip Sharma is a 68-year-old man with nephrolithiasis. He is brought for the above procedures. He is aware of the risks of bleeding, infection, injury to adjacent structures, need for additional procedures and elected to proceed. OPERATIVE PROCEDURE IN DETAIL: Informed consent was verified. Rip Sharma was properly identified, taken to the operating room, placed on the lithotripsy table in supine position. Anesthesia was uneventfully begun. The patient's left nephrolithiasis was localized with biplanar fluoroscopy. A total of 3000 shocks were delivered to the right middle calyceal stone in the right lower stone with excellent fragmentation noted. The patient was then uneventfully reversed from anesthesia, taken to the recovery room in stable condition. There were no complications during the procedure. The patient tolerated the procedure well. Plans will be to return the patient to the operating room to perform a left ureteroscopy, cystoscopy and retrograde pyelograms and indicated procedures. Asif Frias MD [facility]/MODL /[id number]
== END | disposition home or self-care (01) ==
LOC: OR 05:10
PROVIDERS: ATTEND Urology
DX: N20.0 Calculus of kidney (principal); N40.0 Benign prostatic hyperplasia without lower urinary tract symptoms; I10 Essential (primary) hypertension; N26.1 Atrophy of kidney (terminal); M17.0 Bilateral primary osteoarthritis of knee; M54.30 Sciatica, unspecified side; M54.2 Cervicalgia; F17.210 Nicotine dependence, cigarettes, uncomplicated; Z01.812 Encounter for preprocedural laboratory examination
CPT/HCPCS: 36415; 50590; 74018; 80048; 84550; 85025; J0696; J1100; J2001; J2405; J2704; J3010; J3490

== ENCOUNTER → 2019-11-03 | Outpatient (CLI) | payer MEDICARE, OTHER ==
[~2019-11-03] MED LIST changes: -CEFTRIAXONE SOD 1 GM/NS 50 ML 50 ML IV ONE; -DEXAMETHASONE SOD PHOS INJ 4 MG/ML VIAL ONE; -FENTANYL CITRATE/PF 100MCG/2 ML INJ ONE; -GLYCOPYRROLATE INJ 1MG/ 5 ML SYR ONE; -LIDOCAINE HCL 2% LOCAL INJ 5 ML SDV VIAL INJ ONE; -ONDANSETRON HCL INJ 2MG/ML 2ML 2 MG/ML VIAL ONE; -PROPOFOL IV EMULSION 10 MG/ML 20 ML VIAL ONE; -SEVOFLURANE INHAL SOLN 250 ML PEN BTL ONE
--- NOTE | 2019-11-03 09:05 | Diagnostic Imaging Report ---
Exam: KUB - 2 views Indication: Renal calculus Comparison: KUB of 04/10/2019 Findings: Clustered left lower pole renal calculi measure up to 6 mm. Clustered right lower pole renal calculi measure up to 4 mm. This appears essentially unchanged compared to the prior KUB of 04/10/2019. No new radiographically apparent urinary calculi. Subcentimeter phleboliths in the left pelvis. Nonobstructive bowel gas pattern. No free air. No acute osseous injury. Impression: Unchanged right and left lower pole renal calculi. Signed by: Kaelyn Holm MD on 11/03/2019 9:02 AM
== END ==
LOC: RAD 07:12
PROVIDERS: ATTEND Urology
DX: N20.0 Calculus of kidney (principal)
CPT/HCPCS: 74018

== ENCOUNTER 2020-05-08 13:26 | Emergency (ER) | payer MEDICARE, OTHER ==
[~2020-05-08] VITALS: Ht 180.3 cm; Wt 85.3 kg
[2020-05-08] MEDS ORDERED: MECLIZINE HCL 12.5 MG TAB PO ONE (13:45)
[2020-05-08] MEDS ORDERED: SODIUM CHLORIDE 0.9% 500ML 500 ML IV ONE (13:45)
[2020-05-08 14:08] LABS: BASOPHILS # (AUTO) 0.1 (0.0-0.1); BASOPHILS % 0.9 % (0.0-1.0); EOSINOPHILS # (AUTO) 0.4 (0.0-0.4); EOSINOPHILS % 4.3 % (0.0-6.0); HEMATOCRIT 41.2 % (38.2-49.6); HEMOGLOBIN 13.9 g/dL (14.0-18.0); LYMPHOCYTES # (AUTO) 2.7 (1.0-3.2); LYMPHOCYTES % 29.2 % (18.0-39.1); MEAN CORPUSCULAR HEMOGLOBIN 29.6 pg (28-32); MEAN CORPUSCULAR HGB CONC 33.7 g/dL (31-35); MEAN CORPUSCULAR VOLUME 87.7 fL (81-99); MONOCYTES # (AUTO) 0.9 (0.2-0.8); MONOCYTES % 9.7 % (4.4-11.3); NEUTROPHILS # (AUTO) 5.1 (2.1-6.9); NEUTROPHILS % 55.5 % (38.7-80.0); PLATELET COUNT 256 x10e3/uL (140-360); RED CELL DISTRIBUTION WIDTH 13.9 % (11.7-14.4)
[2020-05-08 14:21] LABS: CLARITY,URINE CLEAR (CLEAR); COLOR,URINE AMBER (YELLOW)
[2020-05-08 14:22] LABS: KETONES,URINE NEGATIVE (NEGATIVE); LEUKOCYTE ESTERASE ,URINE NEGATIVE (NEGATIVE); NITRITE,URINE NEGATIVE (NEGATIVE); PROTEIN,URINE DIPSTICK NEGATIVE (NEGATIVE); URINE UROBILINOGEN 0.2 mg/dL (0.2 - 1)
[2020-05-08 14:31] LABS: ALANINE AMINOTRANSFERASE 26 IU/L (0-55); ALBUMIN 3.9 g/dL (3.5-5.0); ALBUMIN/GLOBULIN RATIO 1.3 (0.8-2.0); ALKALINE PHOSPHATASE 71 IU/L (40-150); ANION GAP 13.9 mmol/L (8-16); BLOOD UREA NITROGEN 14 mg/dL (7-26); BUN/CREATININE RATIO 17 (6-25); CALCIUM 8.8 mg/dL (8.4-10.2); CARBON DIOXIDE 24 mmol/L (22-29); CHLORIDE 106 mmol/L (98-107); CREATINE KINASE 70 IU/L (30-200); CREATININE, SERUM 0.81 mg/dL (0.72-1.25); EST GLOMERULAR FILTRATION RATE > 60 ML/MIN (60-); GLUCOSE 152 mg/dL (74-118); MAGNESIUM 1.7 MG/DL (1.3-2.1); POTASSIUM 3.9 mmol/L (3.5-5.1); SODIUM 140 mmol/L (136-145)
[2020-05-08 14:36] LABS: BACTERIA,URINE FEW /HPF; EPITHELIAL CELLS,URINE RARE /LPF; WBC,URINE (MAN) 0-5 /HPF (0-5)
[2020-05-08 15:46] VITALS: BP 151/80
== END 2020-05-08 15:47 | disposition home or self-care (01) ==
LOC: ER 13:28
DX: R42 Dizziness and giddiness (principal); R94.31 Abnormal electrocardiogram [ECG] [EKG]; I10 Essential (primary) hypertension; E78.5 Hyperlipidemia, unspecified; Z87.442 Personal history of urinary calculi; F17.210 Nicotine dependence, cigarettes, uncomplicated
CPT/HCPCS: 36415; 70450; 71045; 80053; 81001; 82550; 82553; 83735; 84484; 85025; 87086; 93005; 99284; J7040; J8597

== ENCOUNTER → 2020-07-14 | Outpatient (CLI) | payer MEDICARE, OTHER | LOC: RAD 07:59 | PROVIDERS: ATTEND Urology | DX: N20.0 Calculus of kidney (principal) | CPT/HCPCS: 74018 ==

== ENCOUNTER → 2021-03-22 | Outpatient (CLI) | payer MEDICARE, OTHER | LOC: RAD 07:03 | PROVIDERS: ATTEND Urology | DX: N20.0 Calculus of kidney (principal) | CPT/HCPCS: 74018 ==

== ENCOUNTER → 2022-01-04 | Outpatient (CLI) | payer MEDICARE, OTHER | LOC: RAD 08:20 | PROVIDERS: ATTEND Urology | DX: N20.0 Calculus of kidney (principal) | CPT/HCPCS: 74018 ==

== ENCOUNTER → 2023-04-12 | Outpatient (REF) | payer MEDICARE, OTHER | LOC: RAD 06:57 | PROVIDERS: ATTEND Urology | DX: N20.0 Calculus of kidney (principal) | CPT/HCPCS: 74018 ==

== ENCOUNTER → 2024-05-11 | Outpatient (REF) | payer MEDICARE, OTHER | LOC: CT 07:29 | PROVIDERS: ATTEND Urology | DX: N20.0 Calculus of kidney (principal) | CPT/HCPCS: 74176 ==

== ENCOUNTER → 2024-09-23 | Outpatient (REF) | payer MEDICARE, OTHER | LOC: CT 07:09 | PROVIDERS: ATTEND Family Medicine Adult Medicine | DX: Z09 Encounter for follow-up examination after completed treatment for conditions other than malignant neoplasm (principal); R91.1 Solitary pulmonary nodule | CPT/HCPCS: 71250 ==